=== PATIENT | male | born 1975 | race Two or more races ===

== ENCOUNTER 2017-02-10 12:57 | Emergency (ER) | payer OTHER ==
--- NOTE | ~2017-02-10 | EKG ---
PATIENT: BARTOLO PANTOJA UNIT #: [id number] Ventricular Rate: 58 BPM Atrial Rate: 58 BPM P-R Interval: 152 ms QRS Duration: 160 ms Q-T Interval: 450 ms QTC Calculation(Bezet): 441 ms P Cherokee: 14 degrees Calculated R Cherokee: -16 degrees Calculated T Cherokee: 17 degrees Diagnosis Line: Sinus bradycardia Diagnosis Line: Right bundle branch block Diagnosis Line: Abnormal ECG Diagnosis Line: No previous ECGs available Diagnosis Line: Confirmed by JOSSELINE TONG MD ([id number]) on Diagnosis Line: 02/10/2017 3:10:04 PM INTERPRETING MD: KATIE
--- NOTE | ~2017-02-10 | CT2 ---
[facility] A Service of [facility] RADIOLOGY TEXT RESULTS PATIENT: BARTOLO PANTOJA LOCATION: [facility] : [birth year] UNIT #: [id number] AGE: [address]: PAULINE LEIVA SEX: M ORDER DR: [id number] [id number] [facility]. [place], [place] [address] [id number] MR#: [id number] #: [id number] NAME: BARTOLO PANTOJA : 1975 SEX: M STUDY DATE/TIME: 02/10/2017 15:04 UNIT: [facility] ROOM: STUDY DESCRIPTION: CT Abd and Pelv W Cont Attending Physician: Pauline Leiva A.P.R.N. Ordering Physician: Pauline Leiva A.P.R.N. Primary Care Physician: No Primary Care Physician MEDICAL IMAGING REPORT This report is preliminary unless electronic signature is present EXAM CT abdomen and pelvis with contrast. HISTORY Abdominal pain since this morning. Right upper quadrant pain, epigastric pain, also shortness of air since yesterday. FINDINGS Axial images performed through the abdomen and pelvis following IV and oral contrast. Multiplanar reconstructed images reviewed at a workstation. This CT exam was performed with one or more of the following radiation dose reduction techniques: automatic exposure control, adjustment of mA and/or kV according to patient size, and iterative reconstruction. Lung bases unremarkable. Liver suggests mild diffuse fatty infiltration. Spleen appears normal. Gallbladder moderately distended with a large 2.2 cm gallbladder neck stone. No CT evidence of acute cholecystitis. Pancreas, kidneys and adrenal glands unremarkable. Visualized GI tract to include the appendix is normal. The retroperitoneum unremarkable. PELVIS: Bladder/prostate unremarkable. L5-S1 degenerative disc changes. Small umbilical hernia measuring 1.5 cm at its neck with the hernia sac measuring up to 4.6 cm containing omental fat only. IMPRESSION 1. Large gallbladder neck stone but no CT evidence of acute cholecystitis. No ductal dilatation. 2. Fatty liver. 3. Small fat containing umbilical hernia. Dictated by... [facility] A Service of [facility] RADIOLOGY TEXT RESULTS PATIENT: BARTOLO PANTOJA LOCATION: [facility] : [birth year] UNIT #: [id number] AGE: [address]: PAULINE LEIVA SEX: M ORDER DR: Najma Edward M.D. THIS IS AN ELECTRONICALLY VERIFIED REPORT Najma Edward M.D. at 02/10/2017 9:09 PM Debbi TD: 02/10/2017 17:06 JOB #: [id number] MEDICAL IMAGING REPORT Page 1 of 1 COPY
[2017-02-10 13:38] LABS: BASOPHIL% 0.4 % (0-2.5); EOSINOPHIL% 0.2 % (0.0-7.0); HEMATOCRIT 44.1 % (38.0-50.0); HEMOGLOBIN 14.3 gm/dL (13.0-16.0); LYMPHOCYTE# 1.5 X10e3 (1.0-3.5); LYMPHOCYTE% 14.9 % (17.0-45.0); MEAN CELL VOLUME 84.1 FL (83-96); MEAN CORPUSCULAR HEMOGLOBIN 27.3 PG (28-34); MEAN CORPUSCULAR HGB CONC 32.5 g/dL (30-36); MEAN PLATELET VOLUME 8.6 FL (6.5-11.5); MONOCYTE# 0.5 X10e3 (0-1.0); MONOCYTE% 5.5 % (3.0-12.0); NEUTROPHIL# 7.8 X10e3 (1.5-7.1); PLATELET COUNT 238 X10e3 (140-420); RED BLOOD COUNT 5.25 X10e (3.90-5.60); RED CELL DISTRIBUTION WIDTH 13.3 % (11.0-15.5); WHITE BLOOD COUNT 9.9 X10e3 (4.0-10.5)
[2017-02-10 13:41] LABS: DIFF IND NO
[2017-02-10 13:58] LABS: POC - CKMB 3.3 ng/mL (0.0-7.9); POC - TROPONIN <0.05 ng/mL (<=0.05)
[2017-02-10 14:01] LABS: ALBUMIN SERUM 3.8 g/dL (3.5-5.0); BILIRUBIN,TOTAL 0.6 mg/dL (0.2-2.0); BUN/CREATININE RATIO 28.57; CALCIUM SERUM 8.6 mg/dL (8.4-10.2); CREATININE SERUM 0.7 mg/dL (0.6-1.4); GLOM FILT RATE Estimated 115.6 mL/min (>60); POTASSIUM 3.8 mmol/L (3.5-5.1); PROTEIN TOTAL SERUM 8.1 g/dL (6.0-8.3)
[2017-02-10 17:28] LABS: URINE SOURCE CLEAN CATCH
[2017-02-10 17:34] LABS: URINE APPEARANCE CLEAR; URINE BILIRUBIN NEG (NEG); URINE BLOOD 1+ (NEG); URINE COLOR YELLOW; URINE GLUCOSE NEG (NEG); URINE KETONE NEG (NEG); URINE LEUKOCYTE ESTERASE NEG (NEG); URINE NITRATE NEG (NEG); URINE PH 7.5 (5-8); URINE PROTEIN NEG (NEG); URINE SPECIFIC GRAVITY 1.053 (1.003-1.035)
[2017-02-10 17:38] LABS: URINE BACTERIA AUWI NEG (NEGATIVE); URINE SQUAMOUS EPITHELIAL CELL NONE SEEN /[HPF]
[2017-02-10 17:49] LABS: CULTURE INDICATED? NO
== END 2017-02-10 18:10 | disposition home or self-care (01) ==
LOC: CED 12:57
PROVIDERS: Nurse Practitioner
DX: K80.70 Calculus of gallbladder and bile duct without cholecystitis without obstruction (principal); K76.0 Fatty (change of) liver, not elsewhere classified; K42.9 Umbilical hernia without obstruction or gangrene
CPT/HCPCS: 36415; 74177; 80053; 81003; 82553; 83690; 84484; 85025; 93005; 96361; 96374; 96375; 99284; J2270; J2405; Q9967